=== PATIENT | male | born 1990 | race African-American/Black ===

== ENCOUNTER → 2016-12-23 | Outpatient (CLI) | payer BC ==
--- NOTE | ~2016-12-23 | CR181 ---
[facility]. [facility] A Service of [facility] RADIOLOGY TEXT RESULTS PATIENT: ELSA WATKINS LOCATION: [facility] : [birth year] UNIT #: [id number] AGE: [address]: Isra Solitario SEX: M ORDER DR: [id number] [place] [id number] O MR#: [id number] Acc #: [id number] NAME: ELSA WATKINS : 1990 SEX: M STUDY DATE/TIME: 12/23/2016 10:59 UNIT: [facility] ROOM: STUDY DESCRIPTION: CR Lumbar Spine 2 or 3 Views Attending Physician: Isra Solitario A.P.R.N. Referring Physician: Isra Solitario A.P.R.N. Ordering Physician: Isra Solitario A.P.R.N. Primary Care Physician: Isra Solitario A.P.R.N. MEDICAL IMAGING REPORT This report is preliminary unless electronic signature is present. EXAM Lumbar spine 3 views. INDICATION Low back pain since April of last year. COMPARISON STUDIES No comparisons. FINDINGS There is mild disc space narrowing and degenerative change at L4-5. Vertebral body heights are maintained. Normal alignment. IMPRESSION Mild L4-L5 degenerative disc space narrowing. Dictated by... Jorge Azar M.D. THIS IS AN ELECTRONICALLY VERIFIED REPORT Jorge Azar M.D. at 12/25/2016 7:23 AM MARGARITA/jose angel TD: 12/23/2016 17:30 JOB #: [id number] MEDICAL IMAGING REPORT Page 1 of 1
== END | disposition home or self-care (01) ==
LOC: SRAD 10:53
DX: M54.5 Low back pain (principal); M51.36 Other intervertebral disc degeneration, lumbar region
CPT/HCPCS: 72100